=== PATIENT | male | born 1985 | race Two or more races ===

== ENCOUNTER 2016-11-06 12:37 | Emergency (ER) | payer SELFPAY ==
[~2016-11-06] VITALS: Ht 175.3 cm; Wt 81.6 kg
[2016-11-06] MEDS ORDERED: ACETAMINOPHEN 325 MG TAB PO ONE ×2 (12:58→13:15)
[2016-11-06 13:52] LABS: Urine Bilirubin Negative (Negative); Urine Color Yellow (Yellow); Urine Glucose Normal (Normal); Urine Ketone Negative (Negative); Urine Mucus FEW (None Seen); Urine Nitrite Negative (Negative); Urine RBC 2 /hpf (0 - 3); Urine Squamous Epithelial Cell FEW /hpf (<5); Urine Urobilinogen Normal (Negative); Urine pH 5.5 (5.0-8.0)
[2016-11-06 13:54] LABS: Urine Blood 2+ /uL (Negative)
[2016-11-06 14:26] LABS: Basophils # (auto) 0 uL; Basophils % (auto) 0.2 % (0.0-2.0); DEFINITIVE VIEW TRANSMISSION; Eosinophils # (auto) 0 uL; Eosinophils % (auto) 0.1 % (0.0-7.0); Hematocrit 40.2 % (41.0-53.0); Hemoglobin 13.9 g/dL (13.5-17.5); Lymphocytes # (auto) 1.6 uL; Lymphocytes % (auto) 9.6 % (10.0-50.0); Mean Corpuscular Hemoglobin 29.4 pg (28.0-32.0); Mean Corpuscular Hgb Conc. 34.7 g/dL (32.0-36.0); Mean Corpuscular Volume 84.8 fL (80.0-100.0); Mean Platelet Volume 8.3 fL (7.4-10.4); Monocytes # (auto) 1.7 uL; Monocytes % (auto) 10.3 % (0.0-12.0); Neutrophils # (auto) 13.1 uL; Neutrophils % (auto) 79.8 % (37.0-80.0); Platelet Count (auto) 376 10^3/uL (140-450); Red Cell Distribution Width 12.9 % (11.6-16.0); White Blood Cell 16.5 10^3/uL (4.4-10.8)
[2016-11-06 14:58] LABS: Albumin 3.5 g/dL (3.4-5.0); Bilirubin, Total 0.4 mg/dL (0.2-1.0); Calcium 8.7 mg/dL (8.5-10.1); Total Protein 8.6 g/dL (6.4-8.2)
[2016-11-06] MEDS ORDERED: POTASSIUM CHL 10% (20 MEQ/15ML) ORAL SOLN PO ONE (17:15)
[2016-11-06 18:18] VITALS: BP 121/71
== END 2016-11-06 18:39 | disposition home or self-care (01) ==
LOC: ER 12:39
DX: N39.0 Urinary tract infection, site not specified (principal); E87.6 Hypokalemia; F17.210 Nicotine dependence, cigarettes, uncomplicated; M79.1 Myalgia
CPT/HCPCS: 36415; 70450; 71020; 80053; 80307; 81001; 85025; 87040

== ENCOUNTER 2018-07-24 14:48 | Emergency (ER) | payer SELFPAY ==
[~2018-07-24] VITALS: Ht 172.7 cm; Wt 86.2 kg
[2018-07-24 15:00] VITALS: BP 149/80
== END 2018-07-24 16:50 | disposition left against medical advice (07) ==
LOC: ER 14:55
DX: M79.641 Pain in right hand (principal); M25.531 Pain in right wrist; Z53.21 Procedure and treatment not carried out due to patient leaving prior to being seen by health care provider; Y04.2XXA Assault by strike against or bumped into by another person, initial encounter; Y93.89 Activity, other specified; Y92.149 Unspecified place in prison as the place of occurrence of the external cause; Y99.8 Other external cause status

== ENCOUNTER 2018-12-09 04:22 | Emergency (ER) | payer SELFPAY ==
[~2018-12-09] VITALS: Ht 175.3 cm; Wt 79.4 kg
[2018-12-09 05:08] VITALS: BP 116/90
[2018-12-09] MEDS ORDERED: cefTRIAXone SOD 1,000 MG VL IM ONE (06:00)
[2018-12-09] MEDS ORDERED: TETANUS-DIPTH-ACEL PERTUSSIS 0.5ML SYRG IM ONE (06:00)
== END 2018-12-09 06:24 | disposition home or self-care (01) ==
LOC: ER 04:22
DX: S01.01XA Laceration without foreign body of scalp, initial encounter (principal); F17.210 Nicotine dependence, cigarettes, uncomplicated; X58.XXXA Exposure to other specified factors, initial encounter; Y93.89 Activity, other specified; Y99.8 Other external cause status; Y92.89 Other specified places as the place of occurrence of the external cause
CPT/HCPCS: 12001; 90471; 90715; 96372; 99283; J0696